=== PATIENT | female | born 1995 | race Two or more races ===

== ENCOUNTER 2017-04-21 11:22 | Inpatient (IN) | payer OTHER ==
[2017-04-21] MEDS ORDERED: DINOPROSTONE 10 MG VAGINAL SUPPOSITORY VG ONE (16:15)
[2017-04-21] MEDS ORDERED: DEXTROSE 5%-LACTATED RINGERS 1,000 ML IV SCH ×2 (16:15→22:00)
[2017-04-21 16:38] VITALS: BMI 37.9
[2017-04-21 16:42] LABS: BASO % 0.1 % (0-2.0); EOS % 0.3 % (0-4.5); HEMOGLOBIN 12.7 GM/dL (10.7-15.3); LYMPH % 14.6 % (8-40); MCH 30.5 pg (25.7-33.7); MCHC 33.5 g/dl (32.0-36.0); MEAN PLT VOLUME 8.3 fl (7.5-11.1); MONO % 7.4 % (3.8-10.2); NEUT % 77.6 % (42.8-82.8); PLATELET COUNT 269 K/MM3 (134-434); RBC 4.18 M/mm3 (3.60-5.2); RDW 12.9 % (11.6-15.6); WHITE BLOOD COUNT 12.4 K/mm3 (4.0-10.0)
[2017-04-21 16:49] LABS: ANION GAP 9 (8-16); BLOOD UREA NITROGEN 7 mg/dL (7-18); CALCIUM 8.5 mg/dL (8.5-10.1); CHLORIDE 106 mmol/L (98-107); CO2 22 mmol/L (21-32); CREATININE 0.4 mg/dL (0.55-1.02); GLUCOSE,RANDOM 88 mg/dL (74-106); POTASSIUM 3.6 mmol/L (3.5-5.1); SODIUM 137 mmol/L (136-145)
[2017-04-21 17:06] LABS: INR 1.05 (0.82-1.09); PROTHROMBIN TIME (PATIENT) 11.9 SEC (9.98-11.88)
[2017-04-21 17:09] LABS: ACTIVATED PTT 26.4 SECONDS (26.9-34.4)
--- NOTE | 2017-04-21 20:21 | HP ---
Past Medical History - Primary Care Physician PCP:: Dwaine Epstein - Admission Chief Complaint: 39weeks, oligo, for cervidil induction History of Present Illness: 21 yo f edc 04/24/17 , 39.4 weeks referred by M for induction of labor for oligo , cx 1 cm 50 vx -2 mi, fhr cat 1, irregular contraction, rba discussed History Source: Patient Limitations to Obtaining History: No Limitations - Past Medical History ...: 2 ...Para: 0 ...Term: 0 ...: 0 ...Spon : 1 ...Induced : 0 ...Multiple Gestation: 0 ...LMP: 07/18/16 ... Weeks Gestation by Dates: 39.4 ...EDC by Dates: 04/24/17 ...EDC by Sono: 04/24/17 - Past Surgical History Hx Myomectomy: No Hx Transabdominal Cerclage: No - Smoking History Smoking history: Never smoked Have you smoked in the past 12 months: No - Alcohol/Substance Use Hx Alcohol Use: No - Social History Usual Living Arrangement: Yes: Alone Home Medications - Allergies Allergies/Adverse Reactions: Allergies Allergy/AdvReac Type Severity Reaction Status Date / Time No Known Allergies Allergy Verified 04/21/17 12:01 - Home Medications Home Medications: Ambulatory Orders Vitamins (Sjr) - 1 tab PO DAILY 03/23/17 Ferrous Sulfate [Iron] 325 mg PO DAILY 04/21/17 Review of Systems - Review of Systems Constitutional: reports: No Symptoms Eyes: reports: No Symptoms HENT: reports: No Symptoms Neck: reports: No Symptoms Cardiovascular: reports: No Symptoms Respiratory: reports: No Symptoms Gastrointestinal: reports: No Symptoms Genitourinary: reports: No Symptoms Breasts: reports: No Symptoms Reported Musculoskeletal: reports: No Symptoms Integumentary: reports: No Symptoms Neurological: reports: No Symptoms Endocrine: reports: No Symptoms Hematology/Lymphatic: reports: No Symptoms Psychiatric: reports: No Symptoms Physical Exam - Maternity Vital Signs: Vital Signs Temperature 97.9 F 04/21/17 17:56 Pulse Rate 99 H 04/21/17 19:56 Respiratory Rate 20 04/21/17 19:56 Blood Pressure 126/72 04/21/17 19:56 O2 Sat by Pulse Oximetry (%) Constitutional: Yes: Well Nourished, No Distress, Calm Eyes: Yes: WNL, Conjunctiva Clear, EOM Intact HENT: Yes: WNL, Atraumatic, Normocephalic Neck: Yes: WNL, Supple, Trachea Midline Cardiovascular: Yes: WNL, Regular Rate and Rhythm Breast(s): Yes: WNL - Abdominal Exam/OB Fundal Height: 40 Number of Fetuses: Single Presentation: Vertex Contractions: Yes Regularity: Irregular Intensity: Unaware Monitor Mode: External Heart Rate Location: [facility] Category: I Accelerations: Uniform Decelerations: None - Vaginal Exam/OB Vaginal Bleediing: No Speculum Exam: Yes Dilatation (cm): 1 Effacement (%): 50 Amniotic Membrane Status: Intact Presentation: Vertex/Position Station: -2 - Physical Exam Musculoskeletal: Yes: WNL Extremities: Yes: WNL Edema: LLE: Trace, RLE: Trace Deep Tendon Reflex Grade: Normal +2 Psychiatric: Yes: WNL - Labs Lab Results: CBC, BMP 04/21/17 15:30 04/21/17 15:30 Hemorrhage Risk Assessment - Risk Factors Medium Risk Factors: Yes: None High Risk Factors: Yes: None Risk Score: 1 Risk Level: Medium Risk Problem List - Problems (1) with 39 completed weeks gestation Code(s): Z3A.39 - 39 WEEKS GESTATION OF (2) Oligohydramnios Code(s): O41.00X0 - OLIGOHYDRAMNIOS, UNSP TRIMESTER, NOT APPLICABLE OR UNSP Qualifiers: Fetus number: single or unspecified fetus Trimester: third trimester Qualified Code(s): O41.03X0 - Oligohydramnios, third trimester, not applicable or unspecified Assessment/Plan vervidil induction, rba discussed
[2017-04-21] MEDS ORDERED: ACETAMINOPHEN 325 MG TABLET (FP) ONE (20:59)
[2017-04-21] MEDS ORDERED: ACETAMINOPHEN 325 MG TABLET (FP) PO ONE (21:15)
[2017-04-21] MEDS ORDERED: PROMETHAZINE HCL 25 MG/1 ML VIAL IVPUSH ONE (22:00)
[2017-04-21] MEDS ORDERED: BUTORPHANOL TARTRATE 1 MG/ML VIAL IVPUSH ONE (22:00)
--- NOTE | 2017-04-22 05:33 | PN ---
Progress Note (short form) - Note Progress Note: cervidi removed at 4 am, cx 2 to 3 cm 80 vx -2 mi, fhr cat 1, irregular contraction Problem List - Problems (1) with 39 completed weeks gestation Code(s): Z3A.39 - 39 WEEKS GESTATION OF (2) Oligohydramnios Code(s): O41.00X0 - OLIGOHYDRAMNIOS, UNSP TRIMESTER, NOT APPLICABLE OR UNSP Qualifiers: Fetus number: single or unspecified fetus Trimester: third trimester Qualified Code(s): O41.03X0 - Oligohydramnios, third trimester, not applicable or unspecified
[2017-04-22] MEDS ORDERED: OXYTOCIN 15 UNITS/ LR 250 ML 15 UNIT/250 ML INFUS.BAG IVPB SCH (05:45)
[2017-04-22] MEDS ORDERED: OXYTOCIN 30 UNITS in 0.9% NS 30 UNIT/500 ML INFUS.BAG IVPB SCH ×2 (05:45→16:15)
[2017-04-22] MEDS ORDERED: OXYTOCIN 30 UNITS in 0.9% NS 30 UNIT/500 ML INFUS.BAG IVPB ONE (06:13)
--- NOTE | 2017-04-22 07:47 | PN ---
Progress Note (short form) - Note Progress Note: cx 4 cm,80vx -1,arom, clear , fhr cat 1 , regular contraction Problem List - Problems (1) with 39 completed weeks gestation Code(s): Z3A.39 - 39 WEEKS GESTATION OF (2) Oligohydramnios Code(s): O41.00X0 - OLIGOHYDRAMNIOS, UNSP TRIMESTER, NOT APPLICABLE OR UNSP Qualifiers: Fetus number: single or unspecified fetus Trimester: third trimester Qualified Code(s): O41.03X0 - Oligohydramnios, third trimester, not applicable or unspecified
[2017-04-22] MEDS ORDERED: FENTANYL EP ONE ×2 (08:54→13:01)
[2017-04-22] MEDS ORDERED: BUPIVACAINE EP ONE ×2 (08:54→13:01)
[2017-04-22] MEDS ORDERED: [UNRECOGNIZED DRUG - OTHER] EP ONE ×2 (08:54→13:01)
--- NOTE | 2017-04-22 08:57 | PN ---
Progress Note (short form) - Note Progress Note: cx 4 cm, 80 vx -1 mr , fhr cat 1, wants epidural Problem List - Problems (1) with 39 completed weeks gestation Code(s): Z3A.39 - 39 WEEKS GESTATION OF (2) Oligohydramnios Code(s): O41.00X0 - OLIGOHYDRAMNIOS, UNSP TRIMESTER, NOT APPLICABLE OR UNSP Qualifiers: Fetus number: single or unspecified fetus Trimester: third trimester Qualified Code(s): O41.03X0 - Oligohydramnios, third trimester, not applicable or unspecified
[2017-04-22] MEDS ORDERED: ELECTROLYTE-148 SOLN 1,000 ML IV SCH (09:00)
[2017-04-22] MEDS ORDERED: NALOXONE HCL 0.4 MG/ML VIAL IVPUSH PRN (09:29)
[2017-04-22] MEDS ORDERED: FENTANYL/BUPIVACAINE/NS/PF - PCEA - 50 ML DISP.SYRIN EP SCH ×3 (09:30→10:18)
--- NOTE | 2017-04-22 13:51 | PN ---
Progress Note (short form) - Note Progress Note: cx 5 cm, 80 vx -1 mr, fhr cat 1, OP position Problem List - Problems (1) with 39 completed weeks gestation Code(s): Z3A.39 - 39 WEEKS GESTATION OF (2) Oligohydramnios Code(s): O41.00X0 - OLIGOHYDRAMNIOS, UNSP TRIMESTER, NOT APPLICABLE OR UNSP Qualifiers: Fetus number: single or unspecified fetus Trimester: third trimester Qualified Code(s): O41.03X0 - Oligohydramnios, third trimester, not applicable or unspecified
[2017-04-22] MEDS ORDERED: OXYTOCIN 20 UNITS in 0.9% NS 20 UNIT/1,000 ML INFUS.BAG IV ONE (15:14)
[2017-04-22] MEDS ORDERED: LIDOCAINE HCL 1% PRESERVATIVE FREE - 30ML VIAL ONE (15:14)
[2017-04-22] MEDS ORDERED: BISACODYL 10 MG SUPP.RECT RC PRN (16:04)
[2017-04-22] MEDS ORDERED: METHYLERGONOVINE MALEATE 0.2 MG/1 ML AMP IM PRN (16:04)
[2017-04-22] MEDS ORDERED: WITCH HAZEL 50% (TUCKS) 40 PAD/JAR PAD TP PRN (16:04)
[2017-04-22] MEDS ORDERED: oxyCODONE HCL 5 MG TABLET PO PRN (16:04)
[2017-04-22] MEDS ORDERED: BENZOCAINE 28 GM HEMORRHOIDAL OINTMENT TP PRN (16:04)
[2017-04-22] MEDS ORDERED: BENZOCAINE 20% 57 GM BOTTLE TP PRN (16:04)
[2017-04-22] MEDS ORDERED: IBUPROFEN 600 MG TABLET (FP) PO ONE (17:23)
[2017-04-22] MEDS ORDERED: ACETAMINOPHEN 325 MG TABLET (FP) ONE (17:23)
[2017-04-22] MEDS: IBUPROFEN 600 MG TABLET (FP) PO PRN (17:25)
[2017-04-22] MEDS: ACETAMINOPHEN 325 MG TABLET (FP) PO PRN (17:26)
[2017-04-22] MEDS ORDERED: OXYTOCIN 20 UNITS in 0.9% NS 20 UNIT/1,000 ML INFUS.BAG IV SCH (17:30)
[2017-04-22] MEDS: FERROUS SO4 325 MG TABLET (FP) PO SCH (18:10)
[2017-04-23] MEDS: IBUPROFEN 600 MG TABLET (FP) PO PRN ×2 (02:39→14:56)
[2017-04-23] MEDS: ACETAMINOPHEN 325 MG TABLET (FP) PO PRN ×2 (02:40→14:55)
--- NOTE | 2017-04-23 07:14 | PN ---
Post Progress Note Post Day: 1 Type of Delivery: Vital Signs: Vital Signs Temperature 98.3 F 04/23/17 03:05 Pulse Rate 87 04/23/17 03:05 Respiratory Rate 20 04/23/17 03:05 Blood Pressure 101/71 04/23/17 03:05 O2 Sat by Pulse Oximetry (%) 97 04/22/17 17:00 Breast Exam: Yes: Soft Uterus: Yes: Fundus Firm Abdomen/GI: Yes: Abdomen soft Lochia: Yes: Rubra Lochia, amount: Small Extremities: Yes: Calves non-tender Perineum: Yes: Intact Activity: Ambulating - Labs Labs: CBC WBC 12.4 K/mm3 (4.0-10.0) H D 04/21/17 15:30 RBC 4.18 M/mm3 (3.60-5.2) 04/21/17 15:30 Hgb 12.7 GM/dL (10.7-15.3) 04/21/17 15:30 Hct 38.0 % (32.4-45.2) 04/21/17 15:30 MCV 91.0 fl (80-96) 04/21/17 15:30 MCH 30.5 pg (25.7-33.7) 04/21/17 15:30 MCHC 33.5 g/dl (32.0-36.0) 04/21/17 15:30 RDW 12.9 % (11.6-15.6) 04/21/17 15:30 Plt Count 269 K/MM3 (134-434) 04/21/17 15:30 MPV 8.3 fl (7.5-11.1) D 04/21/17 15:30 Neutrophils % 77.6 % (42.8-82.8) 04/21/17 15:30 Lymphocytes % 14.6 % (8-40) 04/21/17 15:30 Monocytes % 7.4 % (3.8-10.2) 04/21/17 15:30 Eosinophils % 0.3 % (0-4.5) 04/21/17 15:30 Basophils % 0.1 % (0-2.0) 04/21/17 15:30 Assessment/Plan oob reg diet pain contril oob
[2017-04-23 07:52] LABS: BASO % 0.2 % (0-2.0); EOS % 0.2 % (0-4.5); HEMATOCRIT 36.1 % (32.4-45.2); HEMOGLOBIN 11.9 GM/dL (10.7-15.3); MCH 30.5 pg (25.7-33.7); MEAN CELL VOLUME 92.3 fl (80-96); MEAN PLT VOLUME 7.8 fl (7.5-11.1); MONO % 7.5 % (3.8-10.2); NEUT % 76.1 % (42.8-82.8); PLATELET COUNT 255 K/MM3 (134-434); RBC 3.91 M/mm3 (3.60-5.2); RDW 13.3 % (11.6-15.6); WHITE BLOOD COUNT 14.5 K/mm3 (4.0-10.0)
[2017-04-23] MEDS: FERROUS SO4 325 MG TABLET (FP) PO SCH ×2 (08:06→17:40)
[2017-04-23] MEDS: PRENATAL VITAMINS W/ FOLIC ACID TABLET (FP) PO SCH (09:17)
[2017-04-23] MEDS ORDERED: SENNOSIDES/DOCUSATE COMBO (SENNA PLUS) TABLET (UD) PO PRN (22:00)
[2017-04-24] MEDS: IBUPROFEN 600 MG TABLET (FP) PO PRN ×2 (00:18→07:50)
[2017-04-24] MEDS: ACETAMINOPHEN 325 MG TABLET (FP) PO PRN ×2 (00:18→07:49)
[2017-04-24] MEDS: FERROUS SO4 325 MG TABLET (FP) PO SCH (07:49)
[2017-04-24 08:41] VITALS: BP 117/80; PULSE 92; TEMP 97.9
--- NOTE | 2017-04-24 09:03 | PN ---
Post Progress Note - Subjective Subjective: Patient feels well. Voiding and ambulating. Breast feeding Type of Delivery: Vital Signs: Vital Signs Temperature 97.9 F 04/24/17 08:39 Pulse Rate 92 H 04/24/17 08:39 Respiratory Rate 20 04/24/17 08:39 Blood Pressure 117/80 04/24/17 08:39 O2 Sat by Pulse Oximetry (%) 97 04/22/17 17:00 Breast Exam: Yes: Soft Uterus: Yes: Fundus Firm Abdomen/GI: Yes: Abdomen soft Lochia: Yes: Rubra Lochia, amount: Small Extremities: Yes: Calves non-tender Activity: Ambulating - Labs Labs: CBC WBC 14.5 K/mm3 (4.0-10.0) H 04/23/17 07:20 RBC 3.91 M/mm3 (3.60-5.2) 04/23/17 07:20 Hgb 11.9 GM/dL (10.7-15.3) 04/23/17 07:20 Hct 36.1 % (32.4-45.2) 04/23/17 07:20 MCV 92.3 fl (80-96) 04/23/17 07:20 MCH 30.5 pg (25.7-33.7) 04/23/17 07:20 MCHC 33.0 g/dl (32.0-36.0) 04/23/17 07:20 RDW 13.3 % (11.6-15.6) 04/23/17 07:20 Plt Count 255 K/MM3 (134-434) 04/23/17 07:20 MPV 7.8 fl (7.5-11.1) 04/23/17 07:20 Neutrophils % 76.1 % (42.8-82.8) 04/23/17 07:20 Lymphocytes % 16.0 % (8-40) 04/23/17 07:20 Monocytes % 7.5 % (3.8-10.2) 04/23/17 07:20 Eosinophils % 0.2 % (0-4.5) 04/23/17 07:20 Basophils % 0.2 % (0-2.0) 04/23/17 07:20 Problem List - Problems (1) care following vaginal delivery Code(s): Z39.2 - ENCOUNTER FOR ROUTINE FOLLOW-UP Assessment/Plan Patient PPD#2 s/p stable for discharge home vitamins to continue pelvic rest x 6 weeks schedule pp visit in 4-[address] Salazar
--- NOTE | 2017-04-24 09:04 | DS ---
Physical Exam-[employer] Vital Signs: Vital Signs Temperature 97.9 F 04/24/17 08:39 Pulse Rate 92 H 04/24/17 08:39 Respiratory Rate 20 04/24/17 08:39 Blood Pressure 117/80 04/24/17 08:39 O2 Sat by Pulse Oximetry (%) 97 04/22/17 17:00 Constitutional: Yes: Well Nourished, No Distress, Calm Eyes: Yes: WNL, Conjunctiva Clear, EOM Intact HENT: Yes: WNL, Atraumatic, Normocephalic Neck: Yes: WNL, Supple, Trachea Midline Cardiovascular: Yes: WNL, Regular Rate and Rhythm Respiratory: Yes: WNL, Regular, CTA Bilaterally Gastrointestinal: Yes: WNL ...Rectal Exam: Yes: WNL Renal/: Yes: WNL Pelvis: Yes: WNL Internal Exam Deferred: Yes ....Post : Yes: Uterus firm Breast(s): Yes: WNL Musculoskeletal: Yes: WNL Extremities: Yes: WNL Integumentary: Yes: WNL Neurological: Yes: WNL, Alert, Oriented ...Motor Strength: WNL Psychiatric: Yes: WNL, Alert, Oriented Labs: CBC, BMP 04/23/17 07:20 04/21/17 15:30 Delivery - Delivery Type of Anesthesia: Local, Epidural Episiotomy/Laceration: Perineal Extension/lac, 2nd degree EBL (cc): 300 Delivery, Single - Stages of Labor Date 1st Stage Initiatied: 04/22/17 Time 1st Stage Initiated: 04:00 Date 2nd Stage Initiated: 04/22/17 Time 2nd Stage Initiated: 15:15 Date of Delivery: 04/22/17 Time of Delivery: 15:48 Time Placenta Delivered: 15:55 - Condition of Infant Manager Pediatric/Digital Controls Technical Officer Present: Yes Name: Eva Spring Gender: Male Weight: 8 lb 6 oz Position: Left, OA Total Hours ROM (Hrs/Mins): 8HR/15 MIN - 1 Minute Total Score: 9 5 Minutes Total Score: 9 - Feeding Plan Initial Plan: Elected not to breastfeed exclusively throughout hospitalization Discharge Summary Current Active Problems Oligohydramnios (Acute) care following vaginal delivery (Acute) with 39 completed weeks gestation (Acute) Procedures: Principal: vaginal delivery Condition: Good - Instructions Diet, Activity, Other Instructions: return to clinic in 4-6 weeks. call [facility] for appointment. [phone] Physical activity Resume your normal everyday activity as tolerated no heavy lifting or exercise until seen by your surgeon. You may walk unlimited valeri of and climb stairs. You may resume driving the car when you feel safe and comfortable behind the wheel. No sexual activity as instructed. Wound care If you have a bandage, leave it on, and keep dry for 48-72 hours. After that time discard the outer bandage. If they are tapes on the skin under the out of bandage leave them in place. They will peel off in the next 7 to 10 days. Do Not Peel them off. You may shower the day after surgery. If there are tapes present on the skin, you may shower over them. Diet There are no dietary restrictions. Eat healthy, high-fiber foods. Drink 6 to 8 glasses of liquid each day. This will assist in keeping your bowels are regular. Pain management You may take Tylenol or acetaminophen or Ibuprofen (for example, Motrin, Advil etc.) from my pain prescription medication is ordered should be taken as prescribed for moderate to severe pain. Call MD for any of the following: Severe pain not relieved by medication Fever of 101 or higher Excessive bleeding or drainage on dressing Inability to urinate Disposition: HOME - Home Medications Comprehensive Discharge Medication List: Ambulatory Orders Vitamins (Sjr) - 1 tab PO DAILY 03/23/17 Ferrous Sulfate [Iron] 325 mg PO DAILY 04/21/17
[2017-04-24] MEDS: PRENATAL VITAMINS W/ FOLIC ACID TABLET (FP) PO SCH (09:32)
== END 2017-04-24 12:45 | disposition home or self-care (01) ==
LOC: JDEL 11:22 → JLDR 15:00 → J3W 04-22 17:37
PROVIDERS: ADMIT Obstetrics & Gynecology; ATTEND Obstetrics & Gynecology
DX: O09.899 Supervision of other high risk pregnancies, unspecified trimester (principal)
CPT/HCPCS: 36415; 59025; 59409; 80048; 85025; 85610; 85730; 86593; 86850; 86900; 86901; J3490